=== PATIENT | female | born 1950 | race Caucasian/White ===

== ENCOUNTER 2017-03-03 19:45 | Emergency (ER) | payer MEDICARE ==
[2017-03-03 19:52] VITALS: TEMP 97.6
--- NOTE | 2017-03-03 20:01 | ED ---
General Adult HPI - General Chief complaint: Back Pain/Injury Stated complaint: back & abdominal pain Time Seen by Provider: 03/03/17 19:59 Source: patient, RN notes reviewed, old records reviewed Mode of arrival: ambulatory Limitations: no limitations - History of Present Illness Initial comments: This is a 67-year-old female ER for evaluation. This patient presents for evaluation of back pain severe back pain. She has have a history of occasional back pain history of compression fracture back after fall when she got hit by a horse. The patient states that was years ago and never takes pain medication for that. Today she has had with her mom up her 2 days ago she started with her mom up with follow-up, patient And felt a pull in her upper back area, and has had pain ever since. No modifying factors for pain, no loss of bowel or bladder - Related Data Allergies Allergy/AdvReac Type Severity Reaction Status Date / Time codeine Allergy Itching Verified 03/03/17 20:09 Review of Systems ROS Statement: Those systems with pertinent positive or pertinent negative responses have been documented in the HPI. ROS Other: All systems not noted in ROS Statement are negative. Past Medical History Additional Past Medical History / Comment(s): Lupus History of Any Multi-Drug Resistant Organisms: None Reported Past Surgical History: Orthopedic Surgery Additional Past Surgical History / Comment(s): left knee Past Psychological History: No Psychological Hx Reported Smoking Status: Current every day smoker Past Alcohol Use History: None Reported Past Drug Use History: None Reported General Exam Limitations: no limitations General appearance: alert, in no apparent distress Head exam: Present: atraumatic, normocephalic, normal inspection Eye exam: Present: normal appearance, PERRL, EOMI. Absent: scleral icterus, conjunctival injection, periorbital swelling ENT exam: Present: normal exam, mucous membranes moist Neck exam: Present: normal inspection. Absent: tenderness, meningismus, lymphadenopathy Respiratory exam: Present: normal lung sounds bilaterally. Absent: respiratory distress, wheezes, rales, rhonchi, stridor Cardiovascular Exam: Present: regular rate, normal rhythm, normal heart sounds. Absent: systolic murmur, diastolic murmur, rubs, gallop, clicks GI/Abdominal exam: Present: soft, normal bowel sounds. Absent: distended, tenderness, guarding, rebound, rigid Extremities exam: Present: normal inspection, full ROM, normal capillary refill. Absent: tenderness, pedal edema, joint swelling, calf tenderness Back exam: Present: normal inspection, other (Pain in the thoracic back area) Neurological exam: Present: alert, oriented X3, CN II-XII intact Psychiatric exam: Present: normal affect, normal mood Skin exam: Present: warm, dry, intact, normal color. Absent: rash Course Vital Signs 03/03/17 19:49 Temperature 97.6 F Pulse Rate 82 Respiratory 18 Rate Blood Pressure 141/67 O2 Sat by Pulse 100 Oximetry - Reevaluation(s) Reevaluation #1: 03/03/17 20:11 Patient has adequate pain control at this time Medical Decision Making - Medical Decision Making [id number] med ER for evaluation of lumbar thoracic thoracolumbar back strain. X-ray negative for fracture. Patient can be discharged home - Radiology Data Radiology results: report reviewed (X-ray thoracic spine is negative for acute disease), image reviewed Disposition Clinical Impression: Mechanical back pain, Thoracic back pain Disposition: HOME SELF-CARE Condition: Good Instructions: Acute Low Back Pain (ED), Chronic Back Pain (ED) Referrals: Nonstaff,Physician [Primary Care Provider] - 1-2 days
[2017-03-03] MEDS ORDERED: HYDROmorphone 2 MG/ML 1 ML SYRINGE IM STA (20:09)
[2017-03-03] MEDS ORDERED: KETOROLAC 60 MG/2 ML VIAL IM STA (20:09)
--- NOTE | 2017-03-03 20:42 | XR ---
EXAMINATION TYPE: XR thoracic spine 2V DATE OF EXAM: 03/03/2017 8:36 PM COMPARISON: NONE HISTORY: Back pain TECHNIQUE: 3 views FINDINGS: Thoracic vertebra have normal alignment. There is a 15% anterior wedging of T9 vertebra. Th ere is no paraspinal mass. Posterior elements are intact. IMPRESSION: Minimal wedging of T9 vertebra of uncertain age.
[2017-03-03 21:50] VITALS: BP 136/81; PULSE 77; RESP 16
== END 2017-03-03 21:48 | disposition home or self-care (01) ==
LOC: SUPCPDRO 19:45 → EC 19:45
DX: M54.6 Pain in thoracic spine (principal); F17.200 Nicotine dependence, unspecified, uncomplicated; Z88.5 Allergy status to narcotic agent
CPT/HCPCS: 99284; 96372 ×2; 72070; J1170; J1885

== ENCOUNTER 2017-04-16 14:55 | Emergency (ER) | payer MEDICARE ==
[2017-04-16 15:04] VITALS: BP 117/59; PULSE 105; RESP 20; TEMP 98.3
--- NOTE | 2017-04-16 15:45 | CT ---
EXAMINATION TYPE: CT thoracic spine wo con DATE OF EXAM: 04/16/2017 COMPARISON: NONE HISTORY: Pt states of thoracic pain worsening x1 month. CT DLP: 547.9 mGycm Automated exposure control for dose reduction was used. Unenhanced CT of the thoracic spine was performed with bone and soft tissue window settings submitted . Axial coronal and sagittal images are reviewed. FINDINGS: There is an acute T8 vertebral body compression fracture with estimated loss of height of approximate ly 20-30%. No significant bony retropulsion is identified. No involvement of the posterior or middle columns. Paraspinal hematoma is noted though small in size. No additional thoracic fractures identifi ed. Superior endplate Schmorl node is noted of T12. Emphysematous changes seen within the lungs. Scattered nonspecific nodules identified. IMPRESSION: T8 VERTEBRAL BODY COMPRESSION FRACTURE DISCUSSED ABOVE.
--- NOTE | 2017-04-16 15:52 | XR ---
EXAMINATION TYPE: XR chest 2V DATE OF EXAM: 04/16/2017 COMPARISON: NONE HISTORY: Shortness of breath TECHNIQUE: Frontal and lateral views of the chest are obtained. FINDINGS: Scattered senescent parenchymal changes noted. Hyperinflation compatible with COPD. No evidence for infiltrate. No evidence for atelectasis. Heart size is stable. Mediastinal structures are stable and grossly unremarkable. No evidence for hilar prominence. Degenerative changes dorsal spine. IMPRESSION: 1. No evidence for acute pulmonary disease.
--- NOTE | 2017-04-16 16:06 | ED ---
Back Pain HPI - General Chief Complaint: Back Pain/Injury Stated Complaint: Back Pain Time Seen by Provider: 04/16/17 15:08 Source: patient, RN notes reviewed Limitations: no limitations - History of Present Illness Initial Comments: 67-year-old female presents emergency Department chief complaint thoracic back pain. She states started 1 month ago when she lifted her mother. Patient was evaluated emergency department had x-rays which showed no acute fracture. She states she's had continuous pain and no relief. Patient states that she has no chest pain or shortness of breath. Patient denies any fevers or chills. Patient has increased pain with all movements is better when she lays flat. - Related Data Home Medications Medication Instructions Recorded Confirmed Clopidogrel Bisulfate [Plavix] 75 mg PO DAILY 03/03/17 03/03/17 Cyanocobalamin [Vitamin B-12] 500 mcg PO DAILY 03/03/17 03/03/17 Fexofenadine HCl [Lisa Allergy] 180 mg PO DAILY 03/03/17 03/03/17 Folic Acid 1 mg PO DAILY 03/03/17 03/03/17 Mesalamine [Delzicol] 400 mg PO DAILY 03/03/17 03/03/17 Methotrexate Sodium [Methotrexate] 12.5 mg PO TH 03/03/17 03/03/17 Montelukast [Singulair] 10 mg PO HS 03/03/17 03/03/17 Multivitamins, Thera [Multivitamin 1 tab PO DAILY 03/03/17 03/03/17 (formulary)] predniSONE 5 mg PO DAILY 03/03/17 03/03/17 Previous Rx's Medication Instructions Recorded Diazepam [Valium] 5 mg PO HS #20 tab 03/03/17 HYDROcodone/APAP 5-325MG [[place] 1 tab PO Q6HR PRN #30 tab 03/03/17 5-325] Naproxen [Naprosyn] 500 mg PO Q12HR #60 tab 03/03/17 HYDROcodone/APAP 7.5-325MG [[place] 1 tab PO Q6HR PRN #20 tab 04/16/17 7.5-325] Allergies Allergy/AdvReac Type Severity Reaction Status Date / Time codeine Allergy Itching Verified 04/16/17 15:04 Review of Systems ROS Statement: Those systems with pertinent positive or pertinent negative responses have been documented in the HPI. ROS Other: All systems not noted in ROS Statement are negative. Past Medical History Additional Past Medical History / Comment(s): Lupus History of Any Multi-Drug Resistant Organisms: None Reported Past Surgical History: Orthopedic Surgery Additional Past Surgical History / Comment(s): left knee Past Psychological History: No Psychological Hx Reported Smoking Status: Current every day smoker Past Alcohol Use History: None Reported Past Drug Use History: None Reported General Exam Limitations: no limitations General appearance: alert, in no apparent distress Head exam: Present: atraumatic, normocephalic, normal inspection Neck exam: Present: normal inspection, full ROM. Absent: tenderness, meningismus, lymphadenopathy Respiratory exam: Present: normal lung sounds bilaterally. Absent: respiratory distress, wheezes, rales, rhonchi, stridor, chest wall tenderness Cardiovascular Exam: Present: regular rate, normal rhythm, normal heart sounds. Absent: systolic murmur, diastolic murmur, rubs, gallop, clicks GI/Abdominal exam: Present: soft, normal bowel sounds. Absent: distended, tenderness, guarding, rebound, rigid Extremities exam: Present: normal inspection, full ROM, normal capillary refill. Absent: tenderness, pedal edema, joint swelling, calf tenderness Back exam: Present: normal inspection, full ROM, tenderness (Tenderness along thoracic region T7-T9) Course Vital Signs 04/16/17 15:01 Temperature 98.3 F Pulse Rate 105 H Respiratory 20 Rate Blood Pressure 117/59 O2 Sat by Pulse 98 Oximetry Medical Decision Making - Medical Decision Making 67-year-old female presented emergency department for thoracic back pain. Patient has a T8 compression fracture. Patient given pain medication and follow -up through Dr. Moreno occupational safety specialist. Disposition Clinical Impression: Wedge compression fracture of T8 vertebra Disposition: HOME SELF-CARE Condition: Stable Instructions: Vertebral Compression Fracture (ED) Additional Instructions: Please return to the Emergency Department if symptoms worsen or any other concerns. Prescriptions: HYDROcodone/APAP 7.5-325MG [[place] 7.5-325] 1 tab PO Q6HR PRN #20 tab PRN Reason: Pain Referrals: None,Stated [Primary Care Provider] - 1-2 days Itzel Fernandez DO [Doctor of Osteopathic Medicine] - 1-2 days Time of Disposition: 16:05
== END 2017-04-16 16:13 | disposition home or self-care (01) ==
LOC: EC 14:55
DX: S22.060A Wedge compression fracture of T7-T8 vertebra, initial encounter for closed fracture (principal); F17.200 Nicotine dependence, unspecified, uncomplicated; Z79.02 Long term (current) use of antithrombotics/antiplatelets; Z79.52 Long term (current) use of systemic steroids; Z79.899 Other long term (current) drug therapy; Z88.5 Allergy status to narcotic agent; X50.0XXA Overexertion from strenuous movement or load, initial encounter; Y93.F2 Activity, caregiving, lifting
CPT/HCPCS: 71020; 72128; 99284

== ENCOUNTER 2018-03-18 19:58 | Emergency (ER) | payer MEDICARE ==
[2018-03-18] MEDS ORDERED: KETOROLAC 30 MG/ML 1 ML VIAL IM STA (21:09)
[2018-03-18] MEDS ORDERED: ORPHENADRINE 30 MG/ML 2 ML VIAL IM STA (21:09)
--- NOTE | 2018-03-18 21:30 | XR ---
EXAMINATION TYPE: XR lumbar spine 2 or 3V DATE OF EXAM: 03/18/2018 COMPARISON: NONE HISTORY: Back pain TECHNIQUE: 3 views FINDINGS: Lumbar vertebra have normal alignment. There is 15% anterior wedging of L2 vertebra. There is old L2 vertebroplasty. There is 15% anterior wedging of L1 vertebra. There is 10% wedging of T12 v ertebra. There is slight loss of height also L4. There is disc space narrowing at L3-4. Sacroiliac ernie ints are intact. There is generalized osteopenia. IMPRESSION: Multiple mild compression fractures. The ages are unclear.
--- NOTE | 2018-03-18 21:31 | XR ---
EXAMINATION TYPE: XR thoracic spine 2V DATE OF EXAM: 03/18/2018 COMPARISON: 03/03/2017 HISTORY: Back pain TECHNIQUE: 3 views. FINDINGS: There is T8 vertebroplasty. There is 40% anterior wedging of T8. There is generalized osteopenia. The re is 20% anterior wedging of T12. IMPRESSION: Thoracic compression fractures as above. These show some progression at T8 compared to ol d exam. There is no change at T12. Osteopenia.
[2018-03-18 22:46] VITALS: RESP 18
--- NOTE | 2018-03-18 22:46 | ED ---
General Adult HPI - General Chief complaint: Back Pain/Injury Stated complaint: Back Injury Time Seen by Provider: 03/18/18 21:00 Source: patient, RN notes reviewed Mode of arrival: ambulatory Limitations: no limitations - History of Present Illness Initial comments: 68-year-old female presents to the emergency department for a chief complaint of low back pain times one day. Patient states she was trying to orange picker her mother when she felt a snap in her back. Patient has a history of thoracic compression fractures for which she had surgery 8 months ago. Patient denies weakness in the legs. Patient denies shooting pain in the legs. Patient denies bladder or bowel changes. Patient did not sustain any other injuries. Patient did not fall or hit her head. Patient has no other complaints at this time including shortness of breath, chest pain, abdominal pain, nausea or vomiting, headache, or visual changes. - Related Data Home Medications Medication Instructions Recorded Confirmed Clopidogrel Bisulfate [Plavix] 75 mg PO DAILY 03/03/17 03/03/17 Cyanocobalamin [Vitamin B-12] 500 mcg PO DAILY 03/03/17 03/03/17 Fexofenadine HCl [Lisa Allergy] 180 mg PO DAILY 03/03/17 03/03/17 Folic Acid 1 mg PO DAILY 03/03/17 03/03/17 Mesalamine [Delzicol] 400 mg PO DAILY 03/03/17 03/03/17 Methotrexate Sodium [Methotrexate] 12.5 mg PO TH 03/03/17 03/03/17 Montelukast [Singulair] 10 mg PO HS 03/03/17 03/03/17 Multivitamins, Thera [Multivitamin 1 tab PO DAILY 03/03/17 03/03/17 (formulary)] predniSONE 5 mg PO DAILY 03/03/17 03/03/17 Previous Rx's Medication Instructions Recorded Diazepam [Valium] 5 mg PO HS #20 tab 03/03/17 HYDROcodone/APAP 5-325MG [[place] 1 tab PO Q6HR PRN #30 tab 03/03/17 5-325] Naproxen [Naprosyn] 500 mg PO Q12HR #60 tab 03/03/17 HYDROcodone/APAP 7.5-325MG [[place] 1 tab PO Q6HR PRN #20 tab 04/16/17 7.5-325] Cyclobenzaprine [Flexeril] 5 mg PO TID #12 tablet 03/18/18 HYDROcodone/APAP 5-325MG [[place] 1 tab PO Q6HR PRN #10 tab 03/18/18 5-325] Ibuprofen [Motrin] 600 mg PO Q8HR PRN #20 tab 03/18/18 Allergies Allergy/AdvReac Type Severity Reaction Status Date / Time codeine Allergy Itching Verified 03/18/18 20:11 Review of Systems ROS Statement: Those systems with pertinent positive or pertinent negative responses have been documented in the HPI. ROS Other: All systems not noted in ROS Statement are negative. Past Medical History Additional Past Medical History / Comment(s): Lupus History of Any Multi-Drug Resistant Organisms: None Reported Past Surgical History: Orthopedic Surgery Additional Past Surgical History / Comment(s): left knee. kyphoplasty Past Psychological History: No Psychological Hx Reported Smoking Status: Current every day smoker Past Alcohol Use History: None Reported Past Drug Use History: None Reported General Exam Limitations: no limitations General appearance: alert, in no apparent distress Head exam: Present: atraumatic, normocephalic, normal inspection Eye exam: Present: normal appearance, PERRL, EOMI. Absent: scleral icterus, conjunctival injection, periorbital swelling ENT exam: Present: normal exam, mucous membranes moist Neck exam: Present: normal inspection, full ROM. Absent: tenderness, meningismus, lymphadenopathy Respiratory exam: Present: normal lung sounds bilaterally. Absent: respiratory distress, wheezes, rales, rhonchi, stridor Cardiovascular Exam: Present: regular rate, normal rhythm, normal heart sounds. Absent: systolic murmur, diastolic murmur, rubs, gallop, clicks Extremities exam: Present: normal capillary refill (Refill less than 2 seconds and pedal pulse 2+ in lower extremities bilaterally.), other (Sensation intact in lower extremities bilaterally. strength 5/5 in BLE.) Back exam: Present: tenderness (Tenderness to T9 area as well as the lumbar spine.). Absent: full ROM (Patient has about 45 flexion of the lumbar spine and about 10 extension of the lumbar spine. Patient does have some rotation as well.), CVA tenderness (R), CVA tenderness (L), paraspinal tenderness Neurological exam: Present: alert, oriented X3, CN II-XII intact Course Vital Signs 03/18/18 03/18/18 20:08 22:46 Temperature 98.3 F Pulse Rate 93 Respiratory 28 H 18 Rate Blood Pressure 168/81 O2 Sat by Pulse 99 Oximetry Medical Decision Making - Medical Decision Making 68-year-old female presents to the emergency department for a chief complaint of back pain times one day. Patient had previous thoracic spinal fractures and has had surgery 8 months ago. Patient was lifting her mother today when she felt the pain. That is how she injured her back last time. Patient denies bladder or bowel changes. On exam patient has tenderness to the thoracic and lumbar spines. Limited range of motion of the lumbar spine. Strength 5 out of 5 in lower extremities bilaterally. Neurovascular intact. X-ray demonstrates multiple compression fractures of the lumbar spine of indeterminate age. 15% anterior wedge of L2 vertebrae. 15% anterior wedge of L1. 20% wedging of T12. 40% anterior wedging of T8. There is no previous lumbar spine x-ray to compare. CT shows multiple compression fractures. L1 fracture appears acute. T8 fracture stable compared to old exam. Discussed these findings with patient and offered admission to the hospital for pain management. Patient refuses admission and would like to manage pain at home. She had done so the past time and believes she will not have any difficulty doing so. Patient is able to walk without difficulty. She was given [place] and Motrin for pain relief. Patient also requested Flexeril as that helped her last time. Patient had tolerated Flexeril while in the past. Patient also has a back brace in the ER at this time. Patient is aware she can return to the emergency Department if she has any worsening symptoms. She will follow-up with orthopedics tomorrow. Disposition Clinical Impression: Compression fracture of L1 lumbar vertebra Disposition: HOME SELF-CARE Condition: Good Instructions: Acute Low Back Pain (ED) Additional Instructions: Please take Motrin and [place] for pain relief. Take Flexeril as needed. Do not drive or operate machinery while taking [place] or Flexeril. Return to the emergency department if you have any worsening symptoms. Continue to wear back brace. Otherwise follow-up with orthopedics in one to 2 days. Prescriptions: Cyclobenzaprine [Flexeril] 5 mg PO TID #12 tablet HYDROcodone/APAP 5-325MG [[place] 5-325] 1 tab PO Q6HR PRN #10 tab PRN Reason: Pain Ibuprofen [Motrin] 600 mg PO Q8HR PRN #20 tab PRN Reason: Pain Is patient prescribed a controlled substance at d/c from ED?: Yes When asked, does pt state using other controlled substances?: No If prescribed controlled substance>3 days was MAPS reviewed?: Prescribed <3 Days If opioid is for acute pain is fill amount 7 days or less?: Yes If Rx opioid, was Start Talking consent form obtained?: Yes Referrals: Nonstaff,Physician [Primary Care Provider] - 1-2 days Itzel Fernandez DO [Doctor of Osteopathic Medicine] - 1-2 days Time of Disposition: 23:27
--- NOTE | 2018-03-18 23:13 | CT ---
EXAMINATION TYPE: CT thor lumbar spine wo con DATE OF EXAM: 03/18/2018 COMPARISON: 04/16/2017 HISTORY: Back pain after lifting injury x4 days ago CT DLP: 961.6 mGycm Automated exposure control for dose reduction was used. FINDINGS: There is vertebroplasty of L2. There is 25% compression deformity of L2. There is 15% anterior wedgin g of L1 could be an acute fracture. There is 40% anterior wedging of T8 with vertebroplasty. There is osteopenia. Vertebra have normal alignment. There is no evidence of spinal stenosis. There is no tho racic paraspinal mass. There is mild central depression of the T12 vertebral body. There is 25% [place] compression deformity of L4 vertebral body. IMPRESSION: MULTIPLE COMPRESSION FRACTURES. L1 FRACTURE APPEARS ACUTE. T8 FRACTURE IS STABLE COMPARED TO OLD EXAM . GENERALIZED OSTEOPENIA.
[2018-03-18 23:35] VITALS: BP 182/81; PULSE 72; TEMP 98
== END 2018-03-18 23:40 | disposition home or self-care (01) ==
LOC: EC 19:58
DX: S32.018A Other fracture of first lumbar vertebra, initial encounter for closed fracture (principal); M54.6 Pain in thoracic spine; F17.200 Nicotine dependence, unspecified, uncomplicated; Z88.5 Allergy status to narcotic agent; Z79.02 Long term (current) use of antithrombotics/antiplatelets; Z79.52 Long term (current) use of systemic steroids; Z79.899 Other long term (current) drug therapy; X50.0XXA Overexertion from strenuous movement or load, initial encounter; Y93.F2 Activity, caregiving, lifting
CPT/HCPCS: 99284; 96372 ×2; 72070; 72100; 72128; 72131; J2360; J1885

== ENCOUNTER → 2018-04-26 | Outpatient (CLI) | payer MEDICARE ==
[2018-04-26 10:12] LABS: Appearance,Urine Clear (Clear); Bilirubin,Urine Negative (Negative); Blood,Urine Trace (Negative); Color,Urine Light Yellow; Glucose,Urine (UA) Negative (Negative); Ketones,Urine Negative (Negative); Leukocyte Esterase,Urine Negative (Negative); Nitrite,Urine Negative (Negative); PH, Urine 5.5 (5.0-8.0); Protein,Urine Negative (Negative); RBC,Urine <1 /hpf (0-5); Specific Gravity,Urine 1.005 (1.001-1.035); Squamous Epithelial Cell,Urine <1 /hpf (0-4); Urobilinogen,Urine <2.0 mg/dL (<2.0)
[2018-04-26 10:18] LABS: Anion Gap 9 mmol/L; Blood Urea Nitrogen 10 mg/dL (7-17); Calcium 9.2 mg/dL (8.4-10.2); Carbon Dioxide 22 mmol/L (22-30); Chloride 109 mmol/L (98-107); Glucose 82 mg/dL (74-99); Potassium 3.9 mmol/L (3.5-5.1); Sodium 140 mmol/L (137-145)
[2018-04-26 10:23] LABS: Basophils % (A) 0 %; Eosinophils # (A) 0.1 k/uL (0-0.7); Eosinophils % (A) 2 %; HCT 43.8 % (34.0-46.0); Lymphocytes # (A) 2.8 k/uL (1.0-4.8); Lymphocytes % (A) 43 %; MCH 30.8 pg (25.0-35.0); MCHC 31.9 g/dL (31.0-37.0); MCV 96.5 fL (80.0-100.0); Monocytes # (A) 0.4 k/uL (0-1.0); Monocytes % (A) 6 %; Neutrophils % (A) 47 %; Platelet Count 208 k/uL (150-450); RBC 4.54 m/uL (3.80-5.40); RDW 13.3 % (11.5-15.5); WBC 6.4 k/uL (3.8-10.6)
[2018-04-26 10:33] LABS: Prothrombin Time 10.1 sec (9.0-12.0)
--- NOTE | 2018-04-26 16:31 | XR ---
EXAMINATION TYPE: XR chest 2V DATE OF EXAM: 04/26/2018 COMPARISON: 04/16/2017 HISTORY: Preoperative evaluation TECHNIQUE: Frontal and lateral views of the chest are obtained. FINDINGS: There is no focal air space opacity, pleural effusion, or pneumothorax seen. The cardiac silhouette size is within normal limits. The osseous structures are intact. Vertebroplasty from [place] or lumbar spine vertebral augmentation is seen in addition to a second area within the thoracic spine . There is diffuse osseous demineralization seen. Pulmonary hyperinflation may relate to underlying C OPD is a coarsened interstitial lung markings. Correlate with pulmonary function tests. IMPRESSION: No acute cardiopulmonary process. Correlate with pulmonary function tests to evaluate fo r underlying COPD.
== END | disposition home or self-care (01) ==
LOC: LABPAT 09:02
PROVIDERS: ATTEND Orthopaedic Surgery Orthopaedic Surgery of the Spine
DX: Z01.818 Encounter for other preprocedural examination (principal); Z01.812 Encounter for preprocedural laboratory examination; S32.019A Unspecified fracture of first lumbar vertebra, initial encounter for closed fracture; Z79.01 Long term (current) use of anticoagulants
CPT/HCPCS: 36415; 71046; 80048; 81001; 85025; 85610; 85730; 86850; 86900; 86901; 87070; 93005

== ENCOUNTER 2018-05-07 06:49 | Day surgery (SDC) | payer MEDICARE ==
[2018-05-06 09:52] VITALS: BMI 25.1
[~2018-05-07 06:49] MED LIST: DEXAMETHASONE SOD PHOSPHATE 10 MG/ML 1 ML VIAL IV ONE; LACTATED RINGERS 1,000 ML IV SCH; LIDOCAINE 1% 20 ML VIAL (10MG/ML) FOR IV START INTRADERMA PRN; MIDAZOLAM 2 MG/2 ML VIAL IV PRN; ONDANSETRON 4 MG/2 ML VIAL IVP ONE; ceFAZolin IN SWFI 2 GM/20 ML SYRINGE IVP ONE
[2018-05-07] MEDS: fentaNYL (PF) 50 MCG/ML 2 ML AMP IV PRN ×3 (08:48→11:43)
[2018-05-07] MEDS ORDERED: SUCCINYLCHOLINE CHLORIDE 100 MG/5 ML SYR IV ONE (10:17)
[2018-05-07] MEDS ORDERED: LIDOCAINE 1% INJ 10MG/ML (20 ML MDV) ONE (10:17)
[2018-05-07] MEDS ORDERED: PROPOFOL 10 MG/ML 20 ML VIAL IV ONE (10:17)
[2018-05-07] MEDS ORDERED: fentaNYL (PF) 50 MCG/ML 2 ML AMP ONE (10:17)
[2018-05-07] MEDS ORDERED: ePHEDrine SULFATE/0.9% NACL/PF 50 MG/5 ML SYRINGE IV ONE (10:17)
[2018-05-07] MEDS ORDERED: MIDAZOLAM 2 MG/2 ML VIAL ONE (10:17)
[2018-05-07] MEDS ORDERED: LIDOCAINE 0.5%-EPI 1:200,000 50 ML VIAL SQ ONE (10:45)
[2018-05-07] MEDS ORDERED: LACTATED RINGERS 1,000 ML IV ONE (10:58)
[2018-05-07] MEDS ORDERED: BENZOCAINE/MENTHOL LOZENG 1 EACH LOZENGE MUCOUS MEM PRN (11:05)
[2018-05-07] MEDS ORDERED: HYDROmorphone 0.5 MG/0.5 ML SYRINGE IVP PRN (11:05)
[2018-05-07] MEDS ORDERED: IBUPROFEN 600 MG TAB PO PRN (11:06)
[2018-05-07] MEDS ORDERED: HYDROcodone/APAP 5-325MG 1 EACH TAB PO PRN ×2 (11:06)
[2018-05-07] MEDS ORDERED: ONDANSETRON 4 MG/2 ML VIAL IVP PRN (11:06)
[2018-05-07] MEDS ORDERED: KETOROLAC 30 MG/ML 1 ML VIAL IVP PRN (11:06)
--- NOTE | 2018-05-07 11:13 | P.OP ---
Date of Procedure: 05/07/18 Preoperative Diagnosis: Compression fracture L1, subacute osteoporotic Postoperative Diagnosis: Same Anesthesia: GETA Pathology: other (L1 vertebral body biopsy sent to pathology) Condition: stable Disposition: PACU Description of Procedure: BRIEF OPERATIVE NOTE Preoperative Diagnosis: Vertebral compression fracture L1, subacute osteoporotic Low back pain Postoperative Diagnosis: Same Procedure: Kyphoplasty of L1 Vertebral body biopsy of L1 Use of biplanar fluoroscopic guidance Surgeon: Dr. Fernandez Finishing Machine Tender: Andre ALCANTAR Anesthesia: General anesthesia per Dr. Osborne Estimated blood loss: Less than 10 mL Specimen: Vertebral body biopsy sent to pathology in formalin Complications: None apparent Components implanted: Bone cement Disposition: To recovery room in good stable condition. 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 She has history of kyphoplasty for the past at L2 and at T8 which did well after those procedures. She is found have a new compression fracture at L1 which correlated well with her low back pain and symptoms. The patient has been through conservative treatment. They attempted conservative care with bracing however they're not having any benefit despite brace use. They continue to have significant pain and debility due to their fracture. We discussed various treatment options including surgery, and the patient wishes to proceed with surgery We discussed the risk, patient's alternatives and benefits of surgery including but not limited to, risk of bleeding risk of infection, risk of need for further surgery, risk of decreased, loss of motion, loss of function, cement extravasation, nerve damage, paralysis, heart attack, blindness and . OPERATIVE SUMMARY After discussing all the risks, patient alternatives and benefits at length, the patient elected to proceed with surgical intervention, signed informed consent, and presented for their procedure. The patient was seen and examined in the preoperative holding area and the surgical site was marked. The patient was given antibiotics and brought to the operating room. The patient was sedated and intubated by anesthesia in standard fashion. The patient was positioned on to the operating room table in a prone position on the appropriate well-padded and well molded bilateral chest rolls. We were careful to pad any bony prominences and pressure points. We were careful to maintain the patient's cervical spine and good neutral alignment and position throughout. We used 2 C-arm machines to establish biplanar fluoroscopic guidance in AP and lateral positions. We were able to localize the fractures appropriately at L1. The patient was prepped and draped in a normal standard fashion. An appropriate timeout and keystone protocol performed. We were able to proceed with the surgery. The local wound area was infiltrated with local anesthetic. An incision was made over the lateral aspect of the pedicle over the appropriate levels with a small 2 mm stab incision on the right of L1. Intraoperative fluoroscopy was taken which showed a marker at the appropriate level at L1. With the appropriate level positively confirmed, I was able to position a sharp trocar over the lateral aspect of the pedicle. As able to advance the trocar into the pedicle and into the posterior aspect of vertebral body being careful to avoid penetration cephalad caudad or medially. The trocar was placed appropriately into the posterior aspect of vertebral body at the appropriate levels. This was confirmed with C-arm guidance. With the trocar intact I was then able to take a bone biopsy with a biopsy punch or a bony drill. The biopsy specimen was passed off to be sent to pathology in formalin. I was then able to place the kyphoplasty balloon within the vertebral body of L1. The position was checked on C-arm. I was able to inflate the balloon some small amount under low pressure and visualization with C-arm. The balloon was well enclosed within the vertebral body. The cement was prepared. With the cement at appropriate working condition the balloons were deflated and removed. I was able to place bony cement with trocar with the cement delivery device under low pressure. It had good fill within the vertebral body. There is no evidence of any extravasation of the cement posteriorly toward the canal. The cement was well contained at the appropriate levels. The cement was allowed to cure appropriately. The trochars removed and final images were taken on C-arm. This showed the cement at the appropriate levels. We were able to proceed with closure. The wound was cleaned and dried and dressed with the appropriate dressing. The drapes were broken down. The patient was gently rolled back onto their hospital bed being careful to maintain their cervical spine and good neutral alignment and position. They were woken up by anesthesia, extubated, and brought to the recovery room in good stable condition. The patient will be admitted to the hospital for observation and for appropriate postoperative care, medical management and monitoring. We will continue to follow them closely about the postoperative course.
[2018-05-07] MEDS ORDERED: SODIUM CHLORIDE 0.9% 1,000 ML IV SCH (11:15)
[2018-05-07] MEDS ORDERED: traMADol 50 MG TAB PO PRN (11:15)
[2018-05-07 11:19] VITALS: RESP 18; TEMP 97.5
[2018-05-07 13:12] VITALS: BP 117/66; PULSE 82
[2018-05-07] MEDS ORDERED: ceFAZolin IN SWFI 2 GM/20 ML SYRINGE IVP SCH (16:00)
[2018-05-07] MEDS ORDERED: CYCLOBENZAPRINE 5 MG TAB PO SCH (16:00)
--- NOTE | 2018-05-07 16:16 | XR ---
Limited lumbar spine HISTORY: Kyphoplasty 4 intraoperative C-arm images document the procedure
--- NOTE | 2018-05-07 16:17 | FL ---
Fluoroscopy HISTORY: Kyphoplasty 448 seconds fluoroscopy time supplied to the referring clinician. 4 intraoperative C-arm images docu ment the procedure. See dictated report from orthopedic surgery.
[2018-05-08] MEDS ORDERED: FOLIC ACID 1 MG TAB PO SCH (09:00)
[2018-05-08] MEDS ORDERED: MESALAMINE 400 MG PO SCH (09:00)
[2018-05-08] MEDS ORDERED: CYANOCOBALAMIN 500 MCG TAB PO SCH (09:00)
[2018-05-08] MEDS ORDERED: SENNOSIDES-DOCUSATE SODIUM 1 EACH TAB PO SCH (09:00)
[2018-05-08] MEDS ORDERED: predniSONE 5 MG TAB PO SCH (09:00)
[2018-05-08] MEDS ORDERED: MULTIVITAMINS, THERA 1 EACH TAB PO SCH (09:00)
[2018-05-08] MEDS ORDERED: METHOTREXATE SODIUM 2.5 MG TAB PO SCH (11:08)
== END 2018-05-07 13:21 | disposition home or self-care (01) ==
LOC: OR 06:49
PROVIDERS: ATTEND Orthopaedic Surgery Orthopaedic Surgery of the Spine
DX: M48.56XA Collapsed vertebra, not elsewhere classified, lumbar region, initial encounter for fracture (principal); M51.17 Intervertebral disc disorders with radiculopathy, lumbosacral region; M51.16 Intervertebral disc disorders with radiculopathy, lumbar region; M81.0 Age-related osteoporosis without current pathological fracture; M54.6 Pain in thoracic spine; H91.90 Unspecified hearing loss, unspecified ear; R51 Headache; M32.9 Systemic lupus erythematosus, unspecified; Z79.891 Long term (current) use of opiate analgesic; Z79.52 Long term (current) use of systemic steroids; Z79.899 Other long term (current) drug therapy; Z72.0 Tobacco use; Z88.5 Allergy status to narcotic agent
CPT/HCPCS: 22514; 88307; 88311; 72020; J2250; J2405; J2001; J3010; J0330; J2704; J0690; 86850; 86900; 86901

== ENCOUNTER → 2018-05-16 | Outpatient (CLI) | payer MEDICARE ==
[2018-05-16 12:15] LABS: Appearance,Urine Clear (Clear); Bacteria,Urine Rare /hpf; Basophils % (A) 0 %; Bilirubin,Urine Negative (Negative); Blood,Urine Small (Negative); Color,Urine Yellow; Eosinophils # (A) 0.1 k/uL (0-0.7); Eosinophils % (A) 1 %; Glucose,Urine (UA) Negative (Negative); HCT 40.3 % (34.0-46.0); HGB 12.9 gm/dL (11.4-16.0); Ketones,Urine Negative (Negative); Leukocyte Esterase,Urine Negative (Negative); Lymphocytes # (A) 2.4 k/uL (1.0-4.8); Lymphocytes % (A) 31 %; MCH 31.1 pg (25.0-35.0); MCV 97.2 fL (80.0-100.0); Mean Platelet Volume 7.3; Monocytes # (A) 0.6 k/uL (0-1.0); Monocytes % (A) 8 %; Mucus,Urine Rare /hpf; Neutrophils # (A) 4.4 k/uL (1.3-7.7); Neutrophils % (A) 57 %; Nitrite,Urine Negative (Negative); PH, Urine 5.5 (5.0-8.0); Platelet Count 262 k/uL (150-450); Protein,Urine Negative (Negative); RBC 4.15 m/uL (3.80-5.40); RBC,Urine 1 /hpf (0-5); RDW 13.9 % (11.5-15.5); Specific Gravity,Urine 1.007 (1.001-1.035); Squamous Epithelial Cell,Urine 1 /hpf (0-4); Urobilinogen,Urine <2.0 mg/dL (<2.0); WBC 7.6 k/uL (3.8-10.6); WBC,Urine 2 /hpf (0-5)
[2018-05-16 12:38] LABS: Anion Gap 6 mmol/L; Blood Urea Nitrogen 13 mg/dL (7-17); Carbon Dioxide 25 mmol/L (22-30); Chloride 110 mmol/L (98-107); Glucose 84 mg/dL (74-99); Potassium 3.6 mmol/L (3.5-5.1); Sodium 141 mmol/L (137-145)
[2018-05-16 13:01] LABS: Partial Thromboplastin Time 26.1 sec (22.0-30.0); Prothrombin Time 9.7 sec (9.0-12.0)
== END | disposition home or self-care (01) ==
LOC: LABPAT 11:39
PROVIDERS: ATTEND Orthopaedic Surgery Orthopaedic Surgery of the Spine
DX: Z01.812 Encounter for preprocedural laboratory examination (principal); S22.059A Unspecified fracture of T5-T6 vertebra, initial encounter for closed fracture
CPT/HCPCS: 36415; 80048; 81001; 85025; 85610; 85730; 87070

== ENCOUNTER 2018-05-21 11:43 | Day surgery (SDC) | payer MEDICARE ==
[2018-05-19 11:29] VITALS: BMI 25.5
[~2018-05-21 11:43] MED LIST changes: +SODIUM CHLORIDE 0.9% 1,000 ML IRRIGATION ONE; +fentaNYL (PF) 50 MCG/ML 2 ML AMP IV PRN
[2018-05-21] MEDS ORDERED: fentaNYL (PF) 50 MCG/ML 2 ML AMP ONE ×3 (13:45→15:48)
[2018-05-21] MEDS ORDERED: HYDROCORTISONE SUCCINATE 100 MG/2 ML VIAL IVP ONE (13:56)
[2018-05-21] MEDS ORDERED: fentaNYL (PF) 50 MCG/ML 2 ML AMP IVP ONE (14:50)
[2018-05-21 15:05] VITALS: RESP 16
[2018-05-21] MEDS ORDERED: MIDAZOLAM 2 MG/2 ML VIAL ONE (15:48)
[2018-05-21] MEDS ORDERED: KETAMINE 10 MG/ML 20 ML VIAL ONE (15:48)
[2018-05-21] MEDS ORDERED: HYDROmorphone (PF) 1 MG/ML ONE (15:48)
[2018-05-21] MEDS ORDERED: LIDOCAINE 1% INJ 10MG/ML (20 ML MDV) ONE (15:48)
[2018-05-21] MEDS ORDERED: IOHEXOL 180 MG/ML 1 ML ML MISCELLANE ONE (15:48)
[2018-05-21] MEDS ORDERED: SUCCINYLCHOLINE CHLORIDE 100 MG/5 ML SYR IV ONE (15:48)
[2018-05-21] MEDS ORDERED: LIDOCAINE 0.5% (PF) 5 MG/ML (50 ML SDV) SQ ONE (15:48)
[2018-05-21] MEDS ORDERED: PROPOFOL 10 MG/ML 20 ML VIAL IV ONE (15:48)
[2018-05-21] MEDS ORDERED: HYDROcodone/APAP 5-325MG 1 EACH TAB PO PRN ×2 (16:39)
[2018-05-21] MEDS ORDERED: HYDROmorphone 1 MG/ML 1 ML SYRINGE IVP PRN ×2 (16:39)
[2018-05-21] MEDS ORDERED: IBUPROFEN 600 MG TAB PO PRN (16:39)
[2018-05-21] MEDS ORDERED: BENZOCAINE/MENTHOL LOZENG 1 EACH LOZENGE MUCOUS MEM PRN (16:39)
[2018-05-21] MEDS ORDERED: KETOROLAC 30 MG/ML 1 ML VIAL IVP PRN (16:39)
[2018-05-21] MEDS ORDERED: SODIUM CHLORIDE 0.9% 1,000 ML IV SCH (16:45)
--- NOTE | 2018-05-21 16:50 | P.OP ---
Date of Procedure: 05/21/18 Preoperative Diagnosis: Acute T6 compression fracture, osteoporotic thoracic back pain Postoperative Diagnosis: Same Anesthesia: GETA Pathology: other (T6 vertebral body biopsy sent to pathology) Condition: stable Disposition: PACU Description of Procedure: BRIEF OPERATIVE NOTE Preoperative Diagnosis: Vertebral compression fracture, T6, acute osteoporotic Postoperative Diagnosis: Same Procedure: Kyphoplasty Of T6 Vertebral body biopsy Of T6 Use of biplanar fluoroscopic guidance Surgeon: Dr. Fernandez Affiliate Manager: Andre ALCANTAR who is present throughout the entire the case persistence during positioning, dissection, exposure, visualization, and all crucial elements of the case as well as closure. Anesthesia: General anesthesia Estimated blood loss: Less than 10 mL Specimen: Vertebral body biopsy of T6 sent to pathology in formalin Complications: None apparent Components implanted: Bone cement Disposition: To recovery room in good stable condition. OPERATIVE INDICATIONS The patient has been having issues in their back over the past few weeks. she has history of compression fractures in the past and actually had one at L1 where she received treatment with kyphoplasty just a few weeks ago. She had noted some pain higher at her thoracic spine the day prior to procedure but imaging during the procedure do not show any new fracture at her thoracic spine. She feels that she did well with her treatment and kyphoplasty at L1 but continued to have pain at her mid and upper thoracic spine. When she returned to the office she had further evaluation is found have new acute compression fracture at T6. This was not present prior to her procedure at the L1 area. We did not note any compression at T6 at the time of the procedure for L1. We discussed different treatment options including brace use and the possibility of further kyphoplasty at T6. The patient has been through conservative treatment With a brace but was not having any benefit at all and was having severe pain which stem from the midthoracic spine. They attempted conservative care with bracing however they're not having any benefit despite brace use. They continue to have significant pain and debility due to their fracture. We discussed various treatment options including surgery, and the patient wishes to proceed with surgery We discussed the risk, patient's alternatives and benefits of surgery including but not limited to, risk of bleeding risk of infection, risk of need for further surgery, risk of decreased , loss of motion, loss of function, cement extravasation, nerve damage, paralysis, heart attack, blindness and . OPERATIVE SUMMARY After discussing all the risks, patient alternatives and benefits at length, the patient elected to proceed with surgical intervention, signed informed consent, and presented for their procedure. The patient was seen and examined in the preoperative holding area and the surgical site was marked. The patient was given antibiotics and brought to the operating room. The patient was sedated and intubated by anesthesia in standard fashion. The patient was positioned on to the operating room table in a prone position on the appropriate well-padded and well molded bilateral chest rolls. We were careful to pad any bony prominences and pressure points. We were careful to maintain the patient's cervical spine and good neutral alignment and position throughout.Her incision from her prior procedure had healed well. We were able to visualize the prior incisions from the kyphoplasty at T8 which was done several years ago. We used 2 C-arm machines to establish biplanar fluoroscopic guidance in AP and lateral positions. We were able to localize the fractures appropriately At T6. The patient was prepped and draped in a normal standard fashion. An appropriate timeout and keystone protocol performed. We were able to proceed with the surgery. The local wound area was infiltrated with local anesthetic At T6. An incision was made over the lateral aspect of the pedicle over the appropriate levels with a small 2 mm stab incision On the left side at T6 . Intraoperative fluoroscopy was taken which showed a marker at the appropriate level At the T6 vertebral body. With the appropriate level positively confirmed , I was able to position a sharp trocar over the lateral aspect of the pedicle. As able to advance the trocar into the pedicle and into the posterior aspect of vertebral body being careful to avoid penetration cephalad caudad or medially. The trocar was placed appropriately into the posterior aspect of vertebral body at the appropriate levels. This was confirmed with C-arm guidance. There were no other new compression deformities noted. The cement at T8 and L1 were noted and appeared stable. With the trocar intact I was then able to take a bone biopsy with a biopsy punch and a bony drill. The biopsy specimen was passed off to be sent to pathology in formalin. I was then able to place the kyphoplasty balloon within the vertebral body. The position was checked on C-arm. I was able to inflate the balloon under low pressure and visualization with C-arm. The balloon was well enclosed within the vertebral body. The cement was prepared. With the cement at appropriate working condition the balloons were deflated and removed. I was able to place bony cement with trocar with the cement delivery device under low pressure. It had good fill within the vertebral body. There is no evidence of any extravasation of the cement posteriorly toward the canal. The cement was well contained at the appropriate levels. The cement was allowed to cure appropriately. we able to place approximately 4-1/2 mL of bone cement into the vertebral body. The trochars removed and final images were taken on C-arm. This showed the cement at the appropriate levels at T6. We were able to proceed with closure. The wound was cleaned and dried and dressed with the appropriate dressing. The drapes were broken down. The patient was gently rolled back onto their hospital bed being careful to maintain their cervical spine and good neutral alignment and position. They were woken up by anesthesia, extubated, and brought to the recovery room in good stable condition. The patient will be admitted to the hospital for observation and for appropriate postoperative care, medical management and monitoring. We will continue to follow them closely about the postoperative course.
[2018-05-21 16:51] VITALS: TEMP 98.5
[2018-05-21] MEDS: MORPHINE SULFATE 4MG/4ML SYRG IV ONE ×2 (17:03→17:08)
[2018-05-21 17:12] LABS: Glucose,Whole Blood 81 mg/dL (75-99)
[2018-05-21] MEDS: MORPHINE SULFATE 4 MG/ML SYRINGE IV ONE ×2 (17:30→17:35)
[2018-05-21 18:06] VITALS: BP 151/75; PULSE 93
[2018-05-21] MEDS ORDERED: CYCLOBENZAPRINE 5 MG TAB PO SCH (22:00)
[2018-05-22] MEDS ORDERED: ceFAZolin IN SWFI 2 GM/20 ML SYRINGE IVP SCH
--- NOTE | 2018-05-22 08:42 | FL ---
Fluoroscopy INDICATION: Pain FINDINGS: Fluoroscopy time: 53 seconds. Images obtained: 2. IMPRESSIONS: 1. Documentation of fluoroscopy.
[2018-05-22] MEDS ORDERED: LORATADINE 10 MG TAB PO SCH (09:00)
[2018-05-22] MEDS ORDERED: METHOTREXATE SODIUM 2.5 MG TAB PO SCH (09:00)
[2018-05-22] MEDS ORDERED: BALSALAZIDE DISODIUM 750 MG CAPSULE PO SCH (09:00)
[2018-05-22] MEDS ORDERED: NON-FORMULARY DRUG (Vitamin B Complex [Vitamin B Complex] 1 EACH) PO SCH (09:00)
[2018-05-22] MEDS ORDERED: predniSONE 5 MG TAB PO SCH (09:00)
[2018-05-22] MEDS ORDERED: FOLIC ACID 1 MG TAB PO SCH (12:00)
[2018-05-22] MEDS ORDERED: MULTIVITAMINS, THERA 1 EACH TAB PO SCH (12:00)
== END 2018-05-21 19:01 | disposition home or self-care (01) ==
LOC: OR 11:43 → 3SUR 17:08 → OR 19:01
PROVIDERS: ATTEND Orthopaedic Surgery Orthopaedic Surgery of the Spine
DX: M80.88XA Other osteoporosis with current pathological fracture, vertebra(e), initial encounter for fracture (principal); M32.9 Systemic lupus erythematosus, unspecified; F17.210 Nicotine dependence, cigarettes, uncomplicated; M19.90 Unspecified osteoarthritis, unspecified site; R07.9 Chest pain, unspecified; Z79.02 Long term (current) use of antithrombotics/antiplatelets; Z79.891 Long term (current) use of opiate analgesic; Z79.52 Long term (current) use of systemic steroids; Z79.899 Other long term (current) drug therapy; Z88.5 Allergy status to narcotic agent
CPT/HCPCS: 93005; 22513; J2270 ×2; J1720; Q9965; J2405; J2001; J3010; J0690